=== PATIENT | male | born 1955 | race Hispanic/Latino ===

== ENCOUNTER 2019-05-22 09:39 | Outpatient (CLI) | payer MEDICAID ==
[~2019-05-22 09:39] MED LIST: SODIUM CHLORIDE 0.9% 1000 ML 1,000 ML ONE
[2019-05-22 11:35] LABS: Blood Urea Nitrogen 20 mg/dL (9-20)
--- NOTE | 2019-05-22 14:11 | Cat Scan Report ---
CT of the chest with contrast INDICATION: Hoarseness COMPARISON: None FINDINGS: There is no hilar or mediastinal adenopathy. There is no aortopulmonic window mass. No pleu ral or pericardial effusion. No thoracic aortic aneurysm or significant vascular calcification. Upper abdomen is unremarkable. Lung windows show a calcified left upper lobe granuloma but otherwise no no dules, masses or infiltrates. Biapical pleural and parenchymal scarring is seen. IMPRESSION: No neoplasm or other significant abnormality seen. Automated exposure control was utilized to diminish radiation dose. Signer Name: Ralph Coronel MD Signed: 05/22/2019 2:07 PM Workstation Name: [id number]
--- NOTE | 2019-05-22 16:05 | Cat Scan Report ---
CT NECK WITH CONTRAST HISTORY: Hoarseness; glossodynia COMPARISON: None. TECHNIQUE: These images were supposedly obtained following intravenous contrast, very little opacification of in travascular space is seen. All CT scans at this location are performed using CT dose reduction for AL NED by means of automated exposure control CONTRAST: I am informed that Mr. Lizarraga was given 100 mL of Omnipaque 300. FINDINGS: No focal lesion is seen along the recurrent laryngeal nerves. No focal lesion is seen in the medulla, perimedullary cistern or jugular fossa. Carotid space is normal up to the AP window. Tracheoesophage al groove is normal bilaterally. Larynx and subglottic larynx are normal. In the supraglottic larynx, epiglottis, aryepiglottic fold, false cord and the laryngeal ventricle are normal. Nonspecific minimal soft tissue thickening is seen on the right side between the posterior hyoid, supraglottic larynx and superior margin of pyriform s inus. Given the history of glossodynia, oral tongue in the base of tongue appears normal. Styloid process a nd parapharyngeal space are normal. Skull Base: No significant abnormality. Parotid, Carotid, Retropharyngeal, Prevertebral, Pharyngeal Mucosal, and Feather Mixer Spaces: No abnorm al mass, enhancing lesion or other significant abnormality. Airway: Patent and without significant abnormality. Lymphatics: Reactive lymph nodes are seen in the internal jugular chain. Vasculature: No significant abnormality. Osseous Structures: No significant abnormality Additional findings: None. IMPRESSION: True vocal cords normal Styloid processes, parapharyngeal space are normal Very subtle soft tissue thickening on the right side between the hyoid bone, supraglottic larynx abov e the level of pyriform sinus; this appears to be nonspecific; if symptoms persist please obtain piero olinium enhanced fat suppressed images for confirmation. Signer Name: Miguel Blum MD Signed: 05/22/2019 4:01 PM Workstation Name: [id number]
== END 2019-05-22 09:40 | disposition home or self-care (01) ==
LOC: CT 09:39
PROVIDERS: ATTEND Otolaryngology
DX: J98.4 Other disorders of lung (principal); R13.11 Dysphagia, oral phase; K14.9 Disease of tongue, unspecified; M79.89 Other specified soft tissue disorders
CPT/HCPCS: 36415; 70491; 71260; 82565; 84520; Q9967; J7030